=== PATIENT | male | born 1975 | race Caucasian/White ===

== ENCOUNTER 2020-08-15 08:12 | Outpatient (REF) | payer OTHER, SELFPAY ==
[2020-08-15 08:29] LABS: COVID-19 Test Negative (Negative)
== END 2020-08-15 08:13 | disposition home or self-care (01) ==
LOC: HO.EMPCOV 08:12
PROVIDERS: Visit Provider Internal Medicine
DX: Z20.828 Contact with and (suspected) exposure to other viral communicable diseases (principal)
CPT/HCPCS: 36415; 87635; C9803

== ENCOUNTER 2020-08-29 09:39 | Outpatient (REF) | payer OTHER, SELFPAY ==
[2020-08-29 10:01] LABS: COVID-19 Test Negative (Negative)
== END 2020-08-29 09:40 | disposition home or self-care (01) ==
LOC: HO.LAB 09:39
PROVIDERS: Visit Provider Internal Medicine
DX: Z20.822 Contact with and (suspected) exposure to COVID-19 (principal)
CPT/HCPCS: 36415; 87635; C9803

== ENCOUNTER 2020-09-06 08:26 | Outpatient (REF) | payer OTHER, SELFPAY ==
[2020-09-06 08:54] LABS: COVID-19 Test Negative (Negative)
== END 2020-09-06 08:27 | disposition home or self-care (01) ==
LOC: HO.EMPCOV 08:26
PROVIDERS: Visit Provider Internal Medicine
DX: Z20.822 Contact with and (suspected) exposure to COVID-19 (principal)
CPT/HCPCS: 36415; 87635; C9803

== ENCOUNTER → 2020-10-12 11:13 | Outpatient (BNVA) | payer OTHER, SELFPAY | PROVIDERS: Visit Provider Internal Medicine | DX: Z13.89 Encounter for screening for other disorder (principal) | CPT/HCPCS: 99202 ==

== ENCOUNTER 2022-09-25 09:12 | Emergency (ER) | payer OTHER, SELFPAY ==
[2022-09-25 09:25] VITALS: BP 130/87; PULSE 60; RESP 18; TEMP 36.6; O2SAT 100; BMI 22.3
[2022-09-25] MEDS: Lidocaine HCl 1 % MPF 5 ML VIAL INFILTRATI (10:12)
--- NOTE | 2022-09-25 10:33 | ED.WOUNDLAC ---
HPI - Wound/Laceration General Chief Complaint: Wound/Laceration <EMY Suresh - Last Filed: 09/25/22 19:02> Stated Complaint: finger inj 09/25/22, work inj <EMY Suresh - Last Filed: 09/25/22 19:02> Time Seen by Provider: 09/25/22 09:29 <EMY Suresh - Last Filed: 09/25/22 19:02> Source: patient <EMY Suresh Last Filed: 09/25/22 19:02> Mode of arrival: ambulatory <EMY Suresh Last Filed: 09/25/22 19:02> History of Present Illness HPI narrative: 47-year-old male with no significant past medical history presenting to the ED complaining of laceration to right 2nd digit S/P cutting on metal ring on EKG machine at work [employer]. Tetanus up-to-date. Denies injury to other area, numbness, tingling, weakness. Denies taking AC <EMY Suresh - Last Filed: 09/25/22 19:02> Onset (ago): minute(s) <EMY Suresh Last Filed: 09/25/22 19:02> Related Data Allergies/Adverse Reactions: Allergies Allergy/AdvReac Type Severity Reaction Status Date / Time No Known Allergies Allergy Unverified 04/26/20 15:14 [No Known Allergies*] <EMY Suresh Last Filed: 09/25/22 19:02> Review of Systems Review of Systems: Constitutional: No Fever, No Chills ENT/Mouth: No Ear Pain, No Nasal Congestion, No Sinus Pain, No Hoarseness, No sore throat, No Rhinorrhea, No Swallowing Difficulty Cardiovascular: No Chest Pain, No SOB Respiratory: No Cough, No Sputum, No Wheezing Gastrointestinal: No Nausea, No Vomiting, No Abdominal pain Musculoskeletal: No joint pain, No Myalgias, No Joint Swelling Skin: +Skin Lesions, No rash Neuro: No Weakness, No Numbness, No Paresthesias <EMY Suresh Last Filed: 09/25/22 19:02> Yes all other systems are reviewed and are negative <EMY Suresh Last Filed: 09/25/22 19:02> Constitutional: Constitutional: Reports as per HPI <EMY Suresh - Last Filed: 09/25/22 19:02> [facility] Past Medical History Attestation statement: The following information was validated with the patient. <EMY Suresh - Last Filed: 09/25/22 19:02> Social History Social History: Social History Advance Directives: No <EMY Suresh - Last Filed: 09/25/22 19:02> Physical Exam Vital Signs: Vital Signs: Last Vital Signs Temp 98 F 09/25/22 09:25 Pulse 60 09/25/22 09:25 Resp 18 09/25/22 09:25 BP 130/87 09/25/22 09:25 Pulse Ox 100 09/25/22 09:25 O2 Del Method 09/25/22 09:25 BMI result Body Mass Index 22.3 <EMY Suresh - Last Filed: 09/25/22 19:02> Vital Signs: Last Vital Signs Temp 98 F 09/25/22 09:25 Pulse 60 09/25/22 09:25 Resp 18 09/25/22 09:25 BP 130/87 09/25/22 09:25 Pulse Ox 100 09/25/22 09:25 O2 Del Method 09/25/22 09:25 BMI result Body Mass Index 22.3 <Alfredo Dunham MD - Last Filed: 10/02/22 16:28> Const: General: cooperative, healthy appearing and no acute distress <EMY Suresh - Last Filed: 09/25/22 19:02> Orientation/consciousness: patient oriented x3 <EMY Suresh - Last Filed: 09/25/22 19:02> Limitations: no limitations <EMY Suresh - Last Filed: 09/25/22 19:02> HEENT: Head: Yes normal to inspection and Yes atraumatic <EMY Suresh - Last Filed: 09/25/22 19:02> Ears: hearing grossly normal bilaterally <EMY Suresh - Last Filed: 09/25/22 19:02> General nose exam: Normal external nose present <EMY Suresh - Last Filed: 09/25/22 19:02> Face and sinus: Yes normal facial exam <EMY Suresh - Last Filed: 09/25/22 19:02> Eyes: General: appearance normal, both eyes and all related structures <EMY Suresh - Last Filed: 09/25/22 19:02> EOM: EOMs intact bilaterally <EMY Suresh - Last Filed: 09/25/22 19:02> Neck: Neck: Yes normal visual inspection and Yes no meningeal signs <EMY Suresh - Last Filed: 09/25/22 19:02> Resp: Effort & Inspection: normal respiratory effort and no respiratory distress <EMY Suresh - Last Filed: 09/25/22 19:02> Cardio: Rate: regular rate <EMY Suresh - Last Filed: 09/25/22 19:02> Skin: Rashes: no rashes <EMY Suresh - Last Filed: 09/25/22 19:02> Neuro: General: patient oriented x3, tone normal and no meningeal signs <EMY Suresh - Last Filed: 09/25/22 19:02> Gait exam (Neuro): Normal gait present <EMY Suresh - Last Filed: 09/25/22 19:02> Extrem: Other: + 2 cm linear laceration to palmar aspect of right 2nd digit overlying PIP. Bleeding controlled. FROM and NV intact. Underlying structures appear intact <EMY Suresh - Last Filed: 09/25/22 19:02> Medications Administered Discontinued Medications Generic Name Dose Route Start Last Admin Trade Name Freq PRN Reason Stop Dose Admin Lidocaine HCl 5 ml 09/25/22 09:51 09/25/22 10:12 Lidocaine Hcl 1 % Mpf 5 Ml Vial INFILTRATI 09/25/22 09:52 5 ml ONCE ONE Administration <EMY Suresh - Last Filed: 09/25/22 19:02> Medications Administered Discontinued Medications Generic Name Dose Route Start Last Admin Trade Name Freq PRN Reason Stop Dose Admin Lidocaine HCl 5 ml 09/25/22 09:51 09/25/22 10:12 Lidocaine Hcl 1 % Mpf 5 Ml Vial INFILTRATI 09/25/22 09:52 5 ml ONCE ONE Administration <Alfredo Dunham MD - Last Filed: 10/02/22 16:28> Medical Decision Making Medical Decision Making MDM Narrative: 47-year-old male with no significant past medical history presenting to the ED complaining of laceration to right 2nd digit S/P cutting on metal ring on EKG machine at work [employer]. On exam vital signs stable, NAD, nontoxic appearing, physical exam as noted above. Underwent I structures appear intact, low suspicion for tendon/ligamental or nerve or rupture, low suspicion for fracture. Plan: Repair wound Please refer to course for remaining clinical decision making, interpretation of labs/imaging results, and discussions with consultants and/or family members. <EMY Suresh - Last Filed: 09/25/22 19:02> Differential Diagnosis Differential Diagnoses: The differential diagnosis associated with the presentation includes <EMY Suresh - Last Filed: 09/25/22 19:02> as above <EMY Suresh - Last Filed: 09/25/22 19:02> Attestation Attending Attestation: I reviewed MEMBER SERVICE REPRESENTATIVE/PA/Resident note, assessment and plan. I agree with the documentation, assessment and plan unless otherwise stated. <Alfredo Dunham MD - Last Filed: 10/02/22 16:28> Procedures Laceration Laceration 1: Site: hand <EMY Suresh - Last Filed: 09/25/22 19:02> Side (If applicable): right <EMY Suresh - Last Filed: 09/25/22 19:02> Size (cm): 2 <EMY Suresh - Last Filed: 09/25/22 19:02> Description: linear <EMY Suresh - Last Filed: 09/25/22 19:02> Depth: simple, single layer <EMY Suresh - Last Filed: 09/25/22 19:02> Local Anesthetic: lidocaine 1% <EMY Suresh - Last Filed: 09/25/22 19:02> Amount of anesthesia used (mL): 3 <EMY Suresh - Last Filed: 09/25/22 19:02> Pre-repair: wound explored <EMY Suresh Last Filed: 09/25/22 19:02> Skin layer closed with: nylon <EMY Suresh Last Filed: 09/25/22 19:02> Size (cm): 5-0 <EMY Suresh Last Filed: 09/25/22 19:02> Number of sutures: 7 <EMY Suresh Last Filed: 09/25/22 19:02> Technique: simple, interrupted <EMY Suresh Last Filed: 09/25/22 19:02> Discharge Plan Discharge Clinical Impression: Finger laceration <EMY Suresh Last Filed: 09/25/22 19:02> Patient Disposition: Home, Self-Care <EMY Suresh Last Filed: 09/25/22 19:02> Instructions: Finger Laceration (ED) <EMY Suresh Last Filed: 09/25/22 19:02> Additional Instructions: Your wounds were repaired today in the emergency department. Keep dry and clean. You need to return to any emergency department, urgent care, or your PCPs office in 7-10 days for suture removal Apply bacitracin and or Neosporin daily Once sutures are removed apply anti scar cream like Mederma If area begins look infected, is red, there is drainage, streaking, or you have fever please return to the emergency department <EMY Suresh Last Filed: 09/25/22 19:02> Referrals: Chris Otero MD [Primary Care Provider] - 1 week (for suture removal) <EMY Suresh Last Filed: 09/25/22 19:02> Discharge Date/Time: 09/25/22 11:09 <EMY Suresh Last Filed: 09/25/22 19:02>
== END 2022-09-25 11:09 | disposition home or self-care (01) ==
PROVIDERS: Emergency Provider Emergency Medicine; PCP Internal Medicine
DX: S61.210A Laceration without foreign body of right index finger without damage to nail, initial encounter (principal); W31.9XXA Contact with unspecified machinery, initial encounter; Y93.9 Activity, unspecified; Y92.9 Unspecified place or not applicable; Y99.0 Civilian activity done for income or pay
CPT/HCPCS: 12001; 99281; 99284

== ENCOUNTER 2023-06-01 06:31 | Outpatient (REF) | payer OTHER, SELFPAY ==
[2023-06-01 06:46] LABS: MANUAL DIFF FLAG NO
[2023-06-01 07:20] LABS: Basophils Absolute Auto 0.1 X10*3/uL (0.0-0.2); Basophils Percent Auto 0.8 % (0-2); Eosinophils Absolute Auto 0.3 X10*3/uL (0.0-0.4); Eosinophils Percent Auto 3.3 % (0-4); Hematocrit 43.4 % (42.0-52.0); Hemoglobin 14.7 g/dl (14.0-18.0); Imm Gran Abs Auto 0.02 X10*3/uL (0.00-0.03); Imm Gran Pct Auto 0.3 % (0.0-0.4); Lymphocytes Absolute Auto 2.1 X10*3/uL (1.2-4.9); Lymphocytes Percent Auto 27.7 % (20-40); Mean Corpuscular HGB Conc 33.9 g/dl (31.0-36.0); Mean Corpuscular Hemoglobin 31.3 pg (27.0-33.0); Mean Corpuscular Volume 92.3 fL (80.0-98.0); Mean Platelet Volume 10.1 fL (9.4-12.4); Monocytes Absolute Auto 0.7 X10*3/uL (0.1-1.2); Monocytes Percent Auto 8.9 % (2-11); Neutrophils Absolute Auto 4.5 x10*3/uL (2.0-8.3); Platelet Count 238 X10*3/uL (160-400); Red Cell Distribution Width 12.2 % (11.0-16.0); White Blood Count 7.6 X10*3/uL (4.8-10.8)
[2023-06-01 07:52] LABS: Alanine Aminotransferase 13 U/L (0-40); Albumin Level 4.6 g/dL (3.5-5.0); Alkaline Phosphatase 66 U/L (39-117); Anion Gap 13 (12-20); Aspartate Amino Transferase 12 U/L (5-37); Bilirubin Total 0.8 mg/dL (0.0-1.0); Blood Urea Nitrogen 13 mg/dL (9-16); Calcium 9.8 mg/dL (8.4-10.2); Carbon Dioxide 25 mmol/L (22-29); Chloride 107 mmol/L (96-108); Cholesterol 229 mg/dL (<200); Estimated Glomerular Filt Rate > 60; Glucose Fasting 103 mg/dL (60-99); HDL Cholesterol 49 mg/dL (>40); LDL Cholesterol Calculated 157 mg/dL (<100); Potassium 3.7 mmol/L (3.3-5.1); Sodium 141 mmol/L (135-145); Total Protein 7.1 g/dL (6.5-8.0); Triglycerides 115 mg/dL (<150)
[2023-06-01 08:46] LABS: Appearance Urine Clear; Color Urine Yellow; Glucose Urine UA Negative (Negative); Leukocyte Esterase Urine Negative (Negative); Nitrite Urine Negative (Negative); PH 5.5 (5.0-9.0); Specific Gravity - Urine 1.015 (1.005-1.025); Urine Blood Negative (Negative); Urine Ketones Negative (Negative); Urine Protein Negative (Neg-Trace)
== END 2023-06-01 06:32 | disposition home or self-care (01) ==
LOC: HO.LAB 06:31
PROVIDERS: PCP Internal Medicine; Visit Provider Internal Medicine
DX: K46.9 Unspecified abdominal hernia without obstruction or gangrene (principal); R10.9 Unspecified abdominal pain; Z82.49 Family history of ischemic heart disease and other diseases of the circulatory system
CPT/HCPCS: 36415; 80053; 80061; 81003; 82550; 85025

== ENCOUNTER 2023-06-25 14:48 | Outpatient (REF) | payer OTHER, SELFPAY ==
--- NOTE | ~2023-06-25 | CT_ITS ---
EXAMINATION: CT ABDOMEN AND PELVIS WITHOUT CONTRAST CLINICAL INFORMATION: Generalized abdominal pain. COMPARISON: None available. TECHNIQUE: Multidetector volumetric imaging was performed from the superior aspect of the liver through the pubic symphysis. Sagittal and coronal reformatted images were obtained on the technologist's workstation. This CT examination was performed using dose optimization techniques as appropriate, variously including the following: *Automated exposure control *Adjustment of mA and/or kV according to patient size (this includes techniques or standardized protocols for targeted exams where dose is matched to indication/reason for exam; i.e. extremities or head) *Use of iterative reconstruction technique DLP: 276 mGy-cm FINDINGS: LUNG BASES: The visualized lung bases are unremarkable. LIVER, GALLBLADDER, AND BILIARY TREE: The liver is normal in size, shape, and attenuation. No focal hepatic lesion or biliary ductal dilatation is present. The gallbladder is unremarkable with no evidence of radiopaque gallstones, gallbladder wall thickening, or obvious pericholecystic inflammatory changes. PANCREAS: Unremarkable. SPLEEN: Unremarkable. ADRENAL GLANDS: Unremarkable. KIDNEYS AND URETERS: The kidneys are normal in size, shape, and attenuation. No hydronephrosis, hydroureter, or calculi seen. No perinephric stranding. BLADDER: Unremarkable. GASTROINTESTINAL TRACT: The small and large bowel are unremarkable aside from a few scattered diverticula without diverticulitis. The appendix appears to have been removed. ABDOMINAL WALL: No significant hernia is appreciated. LYMPH NODES: Some small inguinal lymph nodes are present. There is no retroperitoneal lymphadenopathy. VASCULAR: Minimal calcific plaque without aneurysm. PELVIC VISCERA: Unremarkable. OSSEOUS STRUCTURES: Unremarkable. CT/CT abdomen pelvis wo IV con IMPRESSION: A cause for the patient's generalized abdominal pain has not been found. Fleischner guidelines were followed.
== END 2023-06-25 14:49 | disposition home or self-care (01) ==
LOC: HO.CT 14:48
PROVIDERS: PCP Internal Medicine; Visit Provider Internal Medicine
DX: R10.84 Generalized abdominal pain (principal); K42.0 Umbilical hernia with obstruction, without gangrene
CPT/HCPCS: 74176

== ENCOUNTER 2024-02-21 19:05 | Emergency (ER) | payer OTHER, SELFPAY ==
[2024-02-21 19:10] VITALS: BP 133/68; PULSE 98; RESP 18; TEMP 36.9; O2SAT 100; BMI 20.8
[2024-02-21 19:41] LABS: MANUAL DIFF FLAG NO
[2024-02-21 19:47] LABS: Basophils Percent Auto 0.3 % (0-2); Eosinophils Percent Auto 0.2 % (0-4); Hematocrit 45.1 % (42.0-52.0); Imm Gran Abs Auto 0.07 X10*3/uL (0.00-0.03); Imm Gran Pct Auto 0.6 % (0.0-0.4); Lymphocytes Absolute Auto 1.2 X10*3/uL (1.2-4.9); Lymphocytes Percent Auto 9.4 % (20-40); Mean Corpuscular HGB Conc 35.5 g/dl (31.0-36.0); Mean Corpuscular Volume 90.2 fL (80.0-98.0); Mean Platelet Volume 9.9 fL (9.4-12.4); Monocytes Absolute Auto 0.9 X10*3/uL (0.1-1.2); Monocytes Percent Auto 6.8 % (2-11); Neutrophils Absolute Auto 10.4 x10*3/uL (2.0-8.3); Neutrophils Percent Auto 82.7 % (45-73); Platelet Count 275 X10*3/uL (160-400); Red Cell Distribution Width 11.9 % (11.0-16.0); White Blood Count 12.5 X10*3/uL (4.8-10.8)
[2024-02-21 20:04] LABS: Alanine Aminotransferase 16 U/L (0-40); Albumin Level 5.3 g/dL (3.5-5.0); Alkaline Phosphatase 58 U/L (39-117); Anion Gap 16 (12-20); Aspartate Amino Transferase 16 U/L (5-37); Bilirubin Total 1.8 mg/dL (0.0-1.0); Blood Urea Nitrogen 18 mg/dL (9-16); Calcium 10.7 mg/dL (8.4-10.2); Carbon Dioxide 24 mmol/L (22-29); Chloride 102 mmol/L (96-108); Creatinine Clr Calc Pharmacy 82.9; Estimated Glomerular Filt Rate > 60; Glucose Random 155 mg/dL (60-115); Potassium 4.2 mmol/L (3.3-5.1); Sodium 138 mmol/L (135-145); Total Protein 8.2 g/dL (6.5-8.0)
[2024-02-21 22:18] VITALS: BP 129/78; PULSE 100; RESP 16; TEMP 37.2; O2SAT 97
--- NOTE | 2024-02-21 22:21 | PC.NURSE ---
Patient states he has had a large BM, is feeling much better, wants to go home. Patient given water for PO challenge.
--- NOTE | 2024-02-21 23:15 | ED.GENADULT ---
HPI - General Adult General Chief complaint: Abdominal Pain Stated complaint: adb pain lower rt quad/no BM in 2 days, SOB Time Seen by Provider: 02/21/24 22:56 Source: patient, RN notes reviewed and old records reviewed Mode of arrival: ambulatory Limitations: no limitations History of Present Illness ED Provider: Marianne SELBY narrative: 49-year-old male presents for evaluation abdominal pain. Patient reports he has not had a bowel movement in 2 days. He has right lower abdominal pain with nausea and rectal pressure. He took MiraLax related today without any improvement He is nauseous but without vomiting. He reports that he is status post appendectomy Denies any fevers, chills At the time my evaluation, the patient reports that he had a very large bowel movement 30 minutes ago and his pain has completely resolved Related Data Allergies Allergy/AdvReac Type Severity Reaction Status Date / Time No Known Allergies Allergy Unverified 02/21/24 19:14 [No Known Allergies*] Review of Systems Constitutional: Constitutional: Denies body ache(s), Denies chills and Denies fever(s) Eyes: Eyes: Denies blurry vision Cardiovascular: Cardiovascular: Denies chest pain and Denies dyspnea Respiratory: Respiratory: Denies cough and Denies dyspnea Gastrointestinal: Gastrointestinal: Reports abdominal pain, Denies hematochezia, Reports constipation, Reports nausea and Denies vomiting Musculoskeletal: Musculoskeletal: Denies back pain Integumentary/Breasts: Skin/Breast: Denies rash Psychiatric: Psychiatric: Denies anxiety PMFSH Social History Social History Smoked in Last 30 Days: No Substance Use Type: Marijuana Substance Use Frequency: Occasionally Advance Directives: No Advance Directives Information Provided: No Physical Exam ED Vital Signs: Vital Signs - 24 hr 02/21/24 19:10 02/21/24 22:18 Temperature 98.4 F 98.9 F Pulse Rate 98 100 Respiratory Rate 18 16 Blood Pressure 133/68 129/78 Pulse Oximetry 100 97 Oxygen Delivery Method Room Air Room Air BMI result Body Mass Index 20.8 Const General: healthy appearing, comfortable, no acute distress, alert and awake Nutritional Appearance: well nourished Orientation/consciousness: patient oriented x3 HENMT Head: Yes normocephalic and Yes atraumatic Eyes Eyelids: Yes eyelids normal Conjunctivae: conjunctivae normal Sclerae: sclerae normal Corneas: corneas normal Pupils: Equal, round and reactive pupils present EOM: EOMs intact bilaterally Neck Neck: Yes full ROM Resp Effort & Inspection: normal respiratory effort, able to speak in complete sentences and not labored GI Inspection: No distended Palpation (GI): Soft to palpation, not firm, nontender, no guarding and not rigid Skin General skin exam: elasticity normal Neuro General: patient oriented x3 Cranial nerves: Yes Equal, round and reactive pupils present and Yes Bilaterally intact EOM present Cognition (Neuro): normal cognition Medical Decision Making Medical Decision Making [facility] Narrative: 49-year-old male presents for evaluation abdominal pain for last 3 days, he endorse constipation but reports that he had a very large bowel movement just prior to my evaluation and is currently asymptomatic. His vitals are stable, his physical exam is reassuring, he is nontender. He is already status post appendectomy. Did not see any indication for further workup at this time. He will be discharged Differential Diagnosis Differential Diagnoses: The differential diagnosis associated with the presentation includes Constipation Abdominal pain Obstructive uropathy Obstipation Bowel obstruction Appendicitis Lab Data [facility] Lab Attestation statement: I reviewed the patient's lab results. Mild leukocytosis to 12.5 K with a left shift. No anemia. Normal platelet count. No significant electrolyte abnormalities. Renal function within normal limits. 02/21/24 19:36 02/21/24 19:36 Labs: Lab Results 02/21/24 Range/Units 19:36 WBC 12.5 H (4.8-10.8) X10*3/uL RBC 5.00 (4.60-5.80) X10*6/uL Hgb 16.0 (14.0-18.0) g/dl Hct 45.1 (42.0-52.0) % MCV 90.2 (80.0-98.0) fL MCH 32.0 (27.0-33.0) pg MCHC 35.5 (31.0-36.0) g/dl RDW 11.9 (11.0-16.0) % Plt Count 275 (160-400) X10*3/uL MPV 9.9 (9.4-12.4) fL Immature Gran % (Auto) 0.6 H (0.0-0.4) % Neut % (Auto) 82.7 H (45-73) % Lymph % (Auto) 9.4 L (20-40) % [place] % (Auto) 6.8 (2-11) % Eos % (Auto) 0.2 (0-4) % Baso % (Auto) 0.3 (0-2) % Lymph # (Auto) 1.2 (1.2-4.9) X10*3/uL [place] # (Auto) 0.9 (0.1-1.2) X10*3/uL Eos # (Auto) 0.0 (0.0-0.4) X10*3/uL Baso # (Auto) 0.0 (0.0-0.2) X10*3/uL Abs Immat Gran (auto) 0.07 H (0.00-0.03) X10*3/uL Absolute Neuts (auto) 10.4 H (2.0-8.3) x10*3/uL Absolute Nucleated RBC 0.000 (0.0-0.012) X10*3/uL Nucleated RBC % (auto) 0.0 (0.0-0.2) /100WBC Sodium 138 (135-145) mmol/L Potassium 4.2 (3.3-5.1) mmol/L Chloride 102 (96-108) mmol/L Carbon Dioxide 24 (22-29) mmol/L Anion Gap 16 (12-20) BUN 18 H (9-16) mg/dL Creatinine 1.02 (0.5-1.4) mg/dL Estim Creat Clear Calc 82.9 Estimated GFR > 60 Random Glucose 155 H (60-115) mg/dL Calcium 10.7 H D (8.4-10.2) mg/dL Total Bilirubin 1.8 H (0.0-1.0) mg/dL AST 16 (5-37) U/L ALT 16 (0-40) U/L Alkaline Phosphatase 58 (39-117) U/L Total Protein 8.2 H (6.5-8.0) g/dL Albumin 5.3 H (3.5-5.0) g/dL Tests considered The following testing was considered but not selected: Consider CT scan of the abdomen pelvis, however the patient is currently asymptomatic. This was deferred Discharge Plan Discharge Clinical Impression: Abdominal pain Patient Disposition: Home, Self-Care Instructions: Constipation (ED), High Fiber Diet (ED) Additional Instructions: Your blood work was reassuring. Attached some information on high fiber diet to help prevent constipation Return for new or worsening symptoms Print Language: [place]
[2024-02-21 23:38] VITALS: BP 129/78; PULSE 72; RESP 18; TEMP 36.9; O2SAT 99
== END 2024-02-21 23:40 | disposition home or self-care (01) ==
PROVIDERS: Emergency Provider Internal Medicine; PCP Internal Medicine
DX: R10.31 Right lower quadrant pain (principal); R11.0 Nausea; Z79.899 Other long term (current) drug therapy
CPT/HCPCS: 36415; 80053; 85025; 99283; 99284

== ENCOUNTER 2024-03-09 10:53 | Outpatient (REF) | payer OTHER, SELFPAY ==
[2024-03-09 11:08] LABS: MANUAL DIFF FLAG NO
[2024-03-09 11:57] LABS: Basophils Percent Auto 0.6 % (0-2); Eosinophils Absolute Auto 0.1 X10*3/uL (0.0-0.4); Eosinophils Percent Auto 0.8 % (0-4); Hematocrit 43.6 % (42.0-52.0); Hemoglobin 14.7 g/dl (14.0-18.0); Imm Gran Abs Auto 0.01 X10*3/uL (0.00-0.03); Imm Gran Pct Auto 0.2 % (0.0-0.4); Lymphocytes Absolute Auto 1.6 X10*3/uL (1.2-4.9); Lymphocytes Percent Auto 25.2 % (20-40); Mean Corpuscular HGB Conc 33.7 g/dl (31.0-36.0); Mean Corpuscular Hemoglobin 31.2 pg (27.0-33.0); Mean Corpuscular Volume 92.6 fL (80.0-98.0); Mean Platelet Volume 9.7 fL (9.4-12.4); Monocytes Absolute Auto 0.6 X10*3/uL (0.1-1.2); Monocytes Percent Auto 9.3 % (2-11); Neutrophils Percent Auto 63.9 % (45-73); Platelet Count 251 X10*3/uL (160-400); Red Blood Count 4.71 X10*6/uL (4.60-5.80); White Blood Count 6.3 X10*3/uL (4.8-10.8)
[2024-03-09 12:01] LABS: Estimated Average Glucose 103 mg/dL; Hemoglobin A1c % 5.2 % (<6.0)
[2024-03-09 12:34] LABS: Alanine Aminotransferase 18 U/L (0-40); Albumin Level 5.1 g/dL (3.5-5.0); Alkaline Phosphatase 53 U/L (39-117); Anion Gap 11 (12-20); Aspartate Amino Transferase 21 U/L (5-37); Bilirubin Total 1.4 mg/dL (0.0-1.0); Blood Urea Nitrogen 11 mg/dL (9-16); Calcium 10.3 mg/dL (8.4-10.2); Carbon Dioxide 29 mmol/L (22-29); Chloride 106 mmol/L (96-108); Estimated Glomerular Filt Rate > 60; Glucose Random 99 mg/dL (60-115); Sodium 142 mmol/L (135-145); Total Protein 7.6 g/dL (6.5-8.0)
[2024-03-09 12:51] LABS: Vitamin B12 398 pg/mL (200-900)
[2024-03-09 12:53] LABS: Carcinoembryonic Antigen < 1.73 ng/mL; Free T4 (Free Thyroxine) 1.03 ng/dL (0.71-1.85)
[2024-03-10 13:58] LABS: Gliadin Deamidated IgA Ab 7.3 U/mL; Gliadin Deamidated IgG Ab 4.5 U/mL
[2024-03-10 14:33] LABS: Transglutaminase Ab IgG <1.0 U/mL
== END 2024-03-09 10:54 | disposition home or self-care (01) ==
LOC: HO.LAB 10:53
PROVIDERS: Visit Provider Internal Medicine
DX: R10.9 Unspecified abdominal pain (principal); R19.7 Diarrhea, unspecified; R63.4 Abnormal weight loss; Z13.1 Encounter for screening for diabetes mellitus; R00.2 Palpitations
CPT/HCPCS: 36415; 80053; 82378; 82550; 82607; 83036; 84439; 84443; 85025; 86258; 86364

== ENCOUNTER 2024-03-18 11:34 | Outpatient (REF) | payer OTHER, SELFPAY ==
[2024-03-18 14:13] LABS: Appearance Urine Clear; Color Urine Yellow; Glucose Urine UA Negative (Negative); Leukocyte Esterase Urine Negative (Negative); Nitrite Urine Negative (Negative); Specific Gravity - Urine <= 1.005 (1.005-1.025); Urine Blood Negative (Negative); Urine Ketones Negative (Negative); Urine Protein Negative (Neg-Trace)
== END 2024-03-18 11:35 | disposition home or self-care (01) ==
LOC: HO.LNP 11:34
PROVIDERS: Visit Provider Internal Medicine
DX: R30.0 Dysuria (principal)
CPT/HCPCS: 81003; 87086